=== PATIENT | female | born 1940 | race Caucasian/White ===

== ENCOUNTER 2017-06-22 20:29 | Emergency (ER) | payer MEDICARE, OTHER ==
[~2017-06-22] VITALS: Ht 157.5 cm; Wt 61.2 kg
--- NOTE | 2017-06-23 20:41 | EKG ---
[facility] [address] [facility] [place] [address] Signed Normal sinus rhythm Normal ECG No previous ECGs available Confirmed by PATRIZIA GORDILLO MD ([id number]) on 06/23/2017 8:41:43 PM Electronically Signed By: PATRIZIA GORDILLO MD 06/23/172040 PATIENT NAME: SADIQ BAROTN Electrocardiogram DATE OF : 36 PHYSICIAN: PATRIZIA GORDILLO MD REPORT #: [id number] REPORT IS CONFIDENTIAL AND NOT TO BE RELEASED WITHOUT AUTHORIZATION
== END 2017-06-22 21:55 | disposition home or self-care (01) ==
LOC: ED 20:29
DX: R55 Syncope and collapse (principal); Z87.891 Personal history of nicotine dependence
CPT/HCPCS: 80053; 84484; 85025; 93005; 93010; 99284